=== PATIENT | female | born 1965 | race Caucasian/White ===

== ENCOUNTER 2020-02-24 17:35 | Emergency (ER) | payer OTHER ==
[~2020-02-24] VITALS: Ht 162.6 cm; Wt 83.5 kg
[2020-02-24 17:40] VITALS: BP 131/72
[2020-02-24] MEDS ORDERED: ASPI81TA86 PO (17:43)
[2020-02-24] MEDS ORDERED: CALC1TAB30 PO (17:43)
[2020-02-24] MEDS ORDERED: MAGN1CAP PO (17:43)
[2020-02-24] MEDS ORDERED: SIMV20TA22 PO (17:43)
[2020-02-24] MEDS ORDERED: ZOLP5TAB PO (17:43)
[2020-02-24] MEDS ORDERED: DURA1CAP PO (17:43)
== END 2020-02-24 18:28 | disposition home or self-care (01) ==
LOC: M ED 17:35
DX: Z04.89 Encounter for examination and observation for other specified reasons (principal)